=== PATIENT | female | born 1965 | race Two or more races ===

== ENCOUNTER → 2020-05-01 16:05 | Outpatient (BNVA) | payer OTHER, SELFPAY | PROVIDERS: Visit Provider Physician Assistant | DX: S23.3XXA Sprain of ligaments of thoracic spine, initial encounter (principal); X50.0XXA Overexertion from strenuous movement or load, initial encounter | CPT/HCPCS: 99202 ==

== ENCOUNTER → 2020-05-06 11:25 | Outpatient (BNVA) | payer OTHER, SELFPAY | PROVIDERS: Visit Provider Physician Assistant | DX: S29.012A Strain of muscle and tendon of back wall of thorax, initial encounter (principal); X50.0XXA Overexertion from strenuous movement or load, initial encounter | CPT/HCPCS: 99213 ==

== ENCOUNTER → 2020-05-29 13:41 | Outpatient (BNVA) | payer OTHER, SELFPAY | PROVIDERS: Visit Provider Physician Assistant Medical | DX: S29.012D Strain of muscle and tendon of back wall of thorax, subsequent encounter (principal); X58.XXXD Exposure to other specified factors, subsequent encounter | CPT/HCPCS: 99213 ==

== ENCOUNTER 2020-06-10 13:58 | Outpatient (RCR) | payer OTHER, SELFPAY ==
--- NOTE | 2020-06-10 15:03 | MHC.PT.EP ---
[facility] [place] [facility] [place] [facility] [place] [facility] [address] Ida Barrientos [address] [phone] F: [phone] F: [phone] F: [phone] F: [phone] Physical Therapy Plan of Care Date of Evaluation: 06/10/20 Date of Surgery: NA Diagnosis: Thoracic Strain Assessment: 55 y/o LHD F referred to PT with thoracic strain from [employer]. 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 She felt instant L thoracic pain (inferior pole of scapula) and went to [employer] later that day. She has been working light duty. Currently she has pain and difficulty with prolonged sitting, reaching, lifting, and getting in/out of bed. Examination shows decreased cervical AROM, decreased L shoulder AROM, decreased L thoracic AROM, decreased L scapular strength, static L thoracic rotation, and L impaired postural awareness. Recommend PT 2x/week for 4 weeks to address impairments, implement HEP, and optimize functional mobility. Frequency and Duration: The patient will be seen 2x/week for 4 weeks Short Term Goals: 2 weeks: 1. I with HEP 2. Improve cervical AROM by 5 degrees each direction with pain < 3/10 Usp Goals: 4 weeks: 1. I with HEP and self management of sx 2. Demonstrate proper body mechanics for patient care such as bed mobility 3. Pt will be able to get in/out of bed with pain < 3/10 Treatment Plan: Modalities to reduce pain, spasms and effusion. Manual therapy to restore motion and function. Therapeutic exercise to improve strength and flexibility. Neuromuscular re-education for posture and balance. Therapeutic activities to return to functional activities of daily living. Electronically signed by: Olivia Baker PT Please sign and return to therapist. Thank you for your referral.
--- NOTE | 2020-06-28 08:45 | MHC.PT.DC ---
[facility] [place] [facility] [place] [facility] [place] [facility] [address] Ida Barrientos [address] [phone] F: [phone] F: [phone] F: [phone] F: [phone] Physical Therapy Discharge Report Diagnosis: Thoracic Strain Date of Surgery: NA Date of Evaluation: 06/10/20 Date of Discharge: 06/28/20 Treatments to Date: 1 Cancellations to Date: 1 No Shows to Date: 2 Discharge Status: Visit Non-compliance Discharge Summary: Pt discharged due to noncompliance with scheduling policy. She did not attend any visits following evaluation despite attempts to contact patient. Electronically signed by: Olivia Baker PT Please sign and return to therapist. Thank you for your referral.
== END 2020-06-28 08:45 | disposition other institution (70) ==
LOC: HO.PTCHIC 13:58
PROVIDERS: Visit Provider Physician Assistant Medical
DX: S29.012D Strain of muscle and tendon of back wall of thorax, subsequent encounter (principal)
CPT/HCPCS: 97110; 97161